=== PATIENT | male | born 1965 | race American Indian/Alaskan Native ===

== ENCOUNTER 2018-04-10 07:38 | Day surgery (SDC) | payer OTHER ==
[2018-04-10] MEDS ORDERED: Propofol 10 mg/ml Inj (20 ML) ONE ×3 (10:08→10:50)
[2018-04-10] MEDS ORDERED: Lidocaine Hydrochloride 5 ML INJ ONE (10:09)
[2018-04-10] MEDS ORDERED: Lactated Ringer's 1,000 ML IV ONE (10:18)
--- NOTE | 2018-04-10 10:19 | CP.SDSHP ---
Same Day Surgery H & P - History Proposed Procedure: COLONSCOPY Pre-Op Diagnosis: SEE NOTES - Previous Medical/Surgical History Neuro: Backaches Misc: Other Pain: 2.Mild Pain - Allergies Allergies: Allergies No Known Allergies Allergy (Verified 04/10/18 08:52) - Physical Exam General Appearance: N Vital Signs: Vital Signs 04/10/18 08:30 Temperature 97.3 F L Pulse Rate 72 Respiratory 19 Rate Blood Pressure 119/73 Mental Status: Alert & Oriented x3 Neuro: WNL Heart: WNL Lungs: WNL GI: WNL - {Optional Preform as Required} Breast: WNL Abdomen: Other Rectal: Other Integument: WNL : WNL Ortho: Other ENT: WNL - Impression Pt. Evaluated Today:Candidate for Anesthesia & Procedure: Yes - Date & Time Time: 10:19 Short Stay Discharge - Short Stay Discharge Admitting Diagnosis/Reason for Visit: COLON SCREENING Disposition: HOME/ ROUTINE Referrals: Madhu Saleh MD [Primary Care Provider] -
[2018-04-10] MEDS ORDERED: Midazolam 2 MG/2 ML VIAL ONE (10:38)
[2018-04-10] MEDS ORDERED: Belladonna-Phenobarbital PO ONE ×2 (11:00→12:15)
[2018-04-10 14:26] VITALS: TEMP 97.6
[2018-04-10 14:35] VITALS: BP 104/47; PULSE 62; RESP 16; O2SAT 99
== END 2018-04-10 12:30 | disposition home or self-care (01) ==
LOC: C.ENDO 07:38
PROVIDERS: ATTEND Specialist
DX: Z12.11 Encounter for screening for malignant neoplasm of colon (principal); D12.5 Benign neoplasm of sigmoid colon; K57.30 Diverticulosis of large intestine without perforation or abscess without bleeding
CPT/HCPCS: 45385; 88305; J2250; J2704; J7120